=== PATIENT | female | born 1970 | race African-American/Black ===

== ENCOUNTER 2017-09-02 22:27 | Emergency (ER) | payer OTHER ==
[2017-09-02 23:57] LABS: Basophils # (Auto) 0.1 K/mm3 (0.0-0.1); Basophils % (Auto) 0.8 % (0.0-1.8); Eosinophils # (Auto) 0.4 K/mm3 (0.0-0.4); Eosinophils % (Auto) 4.1 % (0.0-4.3); Hematocrit 36.7 % (30.3-42.9); Hemoglobin 12.2 gm/dl (10.1-14.3); Lymphocytes # (Auto) 3.4 K/mm3 (1.2-5.4); Lymphocytes % (Auto) 36.1 % (13.4-35.0); Mean Corpuscular HGB Conc 33 % (30-34); Mean Corpuscular Hemoglobin 27 pg (28-32); Mean Corpuscular Volume 81 fl (79-97); Monocytes # (Auto) 0.5 K/mm3 (0.0-0.8); Monocytes % (Auto) 5.8 % (0.0-7.3); Platelet Count 247 K/mm3 (140-440); Red Blood Count 4.52 M/mm3 (3.65-5.03); Red Cell Distribution Width 13.6 % (13.2-15.2)
[2017-09-03 00:19] LABS: Albumin 3.9 g/dL (3.9-5); BUN/Creatinine Ratio 16; Blood Urea Nitrogen 8 mg/dL (7-17); Calcium 8.7 mg/dL (8.4-10.2); Hemolysis Index 118
[2017-09-03 00:24] LABS: Alanine Aminotransferase 13 units/L (7-56)
[2017-09-03 01:07] LABS: Bilirubin,Urine NEG (Negative); Blood,Urine LG (Negative); Color,Urine Straw (Yellow); Protein,Urine <15 mg/dL mg/dL (Negative); Urobilinogen,Urine < 2.0 mg/dL (<2.0)
[2017-09-03 01:10] LABS: HCG Qualitative,Urine Negative (Negative)
[2017-09-03] MEDS ORDERED: TORADOL IV ONE (04:03)
--- NOTE | 2017-09-03 04:40 | Emergency Department Report ---
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 2 weeks of lower back pain. 1 day of severe lower abdominal pain. no pai9n with urination. no vaginal dc. currently on period. no fever. normal bowel movements. no vomiting. normal PO. no hx of abdominal surgeries. Pain even with walking. took advil at home, no relief. came to ED. 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 Complaint: abdominal pain Location: LLQ, RLQ, suprapubic Radiation: none Migration to: no migration Severity: severe - Related Data Previous Rx's Medication Instructions Recorded Last Taken Type HYDROcodone/APAP 5-325 [[place] 1 each PO Q6HR PRN #20 tablet 08/14/14 Unknown Rx 5/325] Ibuprofen [Motrin] 800 mg PO Q8H PRN #30 tablet 08/14/14 Unknown Rx Meclizine [Antivert] 25 mg PO TID PRN #30 tablet 08/14/14 Unknown Rx Promethazine [Phenergan] 25 mg PO Q6H PRN #30 tablet 08/14/14 Unknown Rx Allergies Allergy/AdvReac Type Severity Reaction Status Date / Time No Known Allergies Allergy Verified 09/02/17 23:28 ED Review of Systems ROS: Stated complaint: ABDOMINAL PAIN Other details as noted in HPI Comment: All other systems reviewed and negative ED Past Medical Hx - Past Medical History Previous Medical History?: No - Surgical History Past Surgical History?: No - Social History Smoking Status: Never Smoker Substance Use Type: None - Medications Home Medications: Home Medications Medication Instructions Recorded Confirmed Last Taken Type HYDROcodone/APAP 5-325 [[place] 1 each PO Q6HR PRN #20 tablet 08/14/14 Unknown Rx 5/325] Ibuprofen [Motrin] 800 mg PO Q8H PRN #30 tablet 08/14/14 Unknown Rx Meclizine [Antivert] 25 mg PO TID PRN #30 tablet 08/14/14 Unknown Rx Promethazine [Phenergan] 25 mg PO Q6H PRN #30 tablet 08/14/14 Unknown Rx ED Physical Exam - General Limitations: Language Barrier General appearance: alert, in no apparent distress - Head Head exam: Present: atraumatic, normocephalic - Eye Eye exam: Present: normal appearance, PERRL, EOMI - ENT ENT exam: Present: normal exam, normal orophraynx, mucous membranes moist - Neck Neck exam: Present: normal inspection. Absent: tenderness - Respiratory Respiratory exam: Present: normal lung sounds bilaterally. Absent: respiratory distress, wheezes, rales - Cardiovascular Cardiovascular Exam: Present: regular rate, normal rhythm. Absent: systolic murmur, diastolic murmur, rubs, gallop - GI/Abdominal GI/Abdominal exam: Present: soft, tenderness. Absent: distended, guarding, rebound - External exam: Present: normal external exam. Absent: erythema, swelling Speculum exam: Present: normal speculum exam, vaginal bleeding, other (scant dark red blood in vault, on cycle now). Absent: vaginal discharge Bi-manual exam: Present: normal bi-manual exam. Absent: cervical motion tendernes, adnexal tenderness, adnexal mass, uterine enlargement, uterine tenderness - Extremities Exam Extremities exam: Present: normal inspection - Back Exam Back exam: Present: normal inspection, tenderness, paraspinal tenderness. Absent: full ROM, CVA tenderness (R), CVA tenderness (L), muscle spasm, vertebral tenderness - Neurological Exam Neurological exam: Present: alert, oriented X3 - Psychiatric Psychiatric exam: Present: normal affect, normal mood - Skin Skin exam: Present: warm, dry, intact, normal color. Absent: rash ED Course Vital Signs 09/02/17 09/02/17 09/03/17 23:01 23:29 02:00 Temperature 98.4 F 98.4 F Pulse Rate 68 69 Respiratory 18 Rate Blood Pressure 121/76 121/76 133/69 Blood Pressure [Left] O2 Sat by Pulse 99 99 100 Oximetry 09/03/17 09/03/17 02:06 03:00 Temperature 98 F Pulse Rate 60 Respiratory 17 Rate Blood Pressure 126/67 Blood Pressure 139/79 [Left] O2 Sat by Pulse 99 100 Oximetry ED Medical Decision Making - Lab Data Result diagrams: 09/02/17 23:48 09/02/17 23:48 Lab Results 09/02/17 09/02/17 09/03/17 Range/Units 23:48 23:48 00:15 WBC 9.4 (4.5-11.0) K/mm3 RBC 4.52 (3.65-5.03) M/mm3 Hgb 12.2 (10.1-14.3) gm/dl Hct 36.7 (30.3-42.9) % MCV 81 (79-97) fl MCH 27 L (28-32) pg MCHC 33 (30-34) % RDW 13.6 (13.2-15.2) % Plt Count 247 (140-440) K/mm3 Lymph % (Auto) 36.1 H (13.4-35.0) % [place] % (Auto) 5.8 (0.0-7.3) % Eos % (Auto) 4.1 (0.0-4.3) % Baso % (Auto) 0.8 (0.0-1.8) % Lymph # 3.4 (1.2-5.4) K/mm3 [place] # 0.5 (0.0-0.8) K/mm3 Eos # 0.4 (0.0-0.4) K/mm3 Baso # 0.1 (0.0-0.1) K/mm3 Seg Neutrophils % 53.2 (40.0-70.0) % Seg Neutrophils # 5.0 (1.8-7.7) K/mm3 Sodium 137 (137-145) mmol/L Potassium 4.9 (3.6-5.0) mmol/L Chloride 102.4 (98-107) mmol/L Carbon Dioxide 24 (22-30) mmol/L Anion Gap 16 mmol/L BUN 8 (7-17) mg/dL Creatinine 0.5 L (0.7-1.2) mg/dL Estimated GFR > 60 ml/min BUN/Creatinine Ratio 16 % Glucose 91 (65-100) mg/dL Calcium 8.7 (8.4-10.2) mg/dL Total Bilirubin < 0.20 (0.1-1.2) mg/dL AST 25 (5-40) units/L ALT 13 (7-56) units/L Alkaline Phosphatase 68 (35-129) units/L Total Protein 6.5 (6.3-8.2) g/dL Albumin 3.9 (3.9-5) g/dL Albumin/Globulin Ratio 1.5 % Urine Color Straw (Yellow) Urine Turbidity Clear (Clear) Urine pH 7.0 (5.0-7.0) Ur Specific [place] 1.005 (1.003-1.030) Urine Protein <15 mg/dl (Negative) mg/dL Urine Glucose (UA) Neg (Negative) mg/dL Urine Ketones Neg (Negative) mg/dL Urine Blood Lg (Negative) Urine Nitrite Neg (Negative) Urine Bilirubin Neg (Negative) Urine Urobilinogen < 2.0 (<2.0) mg/dL Ur Leukocyte Esterase Tr (Negative) Urine WBC (Auto) 1.0 (0.0-6.0) /HPF Urine RBC (Auto) 3.0 (0.0-6.0) /HPF U Epithel Cells (Auto) < 1.0 (0-13.0) /HPF Urine HCG, Qual Negative (Negative) - Radiology Data Radiology results: report reviewed - Medical Decision Making Ms Weiss is a 47 year-old woman who presents with abdominal pain. Back pain for two week. Exam with mild paraspinal back ttp. No bruising, no swelling, no midline spinal ttp. LEs neuro itnact. Abdominal exam with mild lower abdominal ttp. no hernia, no mass, no rebound. Suspect this is msk back pain. Abdominal pain UTI vs cervcitis vs consitpation vs diverticulitis. Much less likely obstruction based on normal bowel movements and soft abdomen. Normal exam. Normal lytes, WBC, hgb. UA. HCG negative. Wet prep normal. Toradol for pain. As there is a language barrier, i will order CT a/p with contrast to eval for more unlikely pathology. CT unremarkable. pain well controlled with toradol. recommend NSAIDs prn at home and pcp follow-up this week. Critical care attestation.: If time is entered above; I have spent that time in minutes in the direct care of this critically ill patient, excluding procedure time. ED Disposition Clinical Impression: Abdominal pain Qualifiers: Abdominal location: lower abdomen, unspecified Qualified Code(s): R10.30 - Lower abdominal pain, unspecified Disposition: - TO HOME OR SELFCARE Is pt being admited?: No Condition: Stable Instructions: Abdominal Pain (ED) Referrals: PRIMARY CARE,MD [Primary Care Provider] - 3-5 Days
--- NOTE | 2017-09-03 05:09 | Cat Scan Report ---
FINAL REPORT EXAM: CT ABDOMEN PELVIS W CON HISTORY: abdominal pain TECHNIQUE: CT images are acquired through the Abdomen and Pelvis arterial and delayed phases following intravenous administration of contrast. Transaxial, coronal and sagittal reformations are provided. PRIORS: None FINDINGS: Partially visualized intrathoracic contents are unremarkable. The liver is normal in size and contour. There are multiple scattered and predominantly subcentimeter hypo enhancing low-density lesions throughout the liver, by far the largest of which is in the left hepatic lobe and partially exophytic measuring up to 4.5 cm on axial series 2, image 34. No intra or extrahepatic biliary ductal dilatation. No solid or concerning hepatic mass identified. The gallbladder, pancreas, spleen and adrenal glands are unremarkable. Kidneys show no worrisome lesions, hydronephrosis, or calculi. Urinary bladder is unremarkable. Anteverted uterus. No significant free fluid in the pelvis. Small and large bowel are normal in caliber. Appendix is normal. No free air, free fluid, or lymphadenopathy identified. Aorta is normal in course and caliber. Superficial soft tissues are unremarkable. No acute or aggressive appearing skeletal findings. IMPRESSION: No acute findings in the abdomen or pelvis.
[2017-09-03 05:46] VITALS: BP 126/61
== END 2017-09-03 06:05 | disposition home or self-care (01) ==
LOC: ED 22:27
DX: R10.32 Left lower quadrant pain (principal); R10.31 Right lower quadrant pain
CPT/HCPCS: 36415; 74177; 80053; 81001; 81025; 85025; 87210; 87591; 96374; 99285; J1885; Q9967

== ENCOUNTER 2017-09-15 11:50 | Emergency (ER) | payer OTHER ==
[2017-09-15 12:34] LABS: Basophils # (Auto) 0.1 K/mm3 (0.0-0.1); Basophils % (Auto) 0.9 % (0.0-1.8); Eosinophils # (Auto) 0.4 K/mm3 (0.0-0.4); Eosinophils % (Auto) 4.7 % (0.0-4.3); Hematocrit 38.5 % (30.3-42.9); Hemoglobin 12.6 gm/dl (10.1-14.3); Lymphocytes # (Auto) 2.7 K/mm3 (1.2-5.4); Lymphocytes % (Auto) 34.2 % (13.4-35.0); Mean Corpuscular HGB Conc 33 % (30-34); Mean Corpuscular Hemoglobin 27 pg (28-32); Mean Corpuscular Volume 82 fl (79-97); Monocytes # (Auto) 0.5 K/mm3 (0.0-0.8); Monocytes % (Auto) 6.6 % (0.0-7.3); Platelet Count 282 K/mm3 (140-440); Red Blood Count 4.69 M/mm3 (3.65-5.03); Red Cell Distribution Width 14.6 % (13.2-15.2)
[2017-09-15 12:38] LABS: Bacteria,Urine 1+ /HPF (Negative); Bilirubin,Urine NEG (Negative); Blood,Urine SM (Negative); Color,Urine Yellow (Yellow); Mucus,Urine FEW /HPF; Protein,Urine <15 mg/dL mg/dL (Negative); Urobilinogen,Urine < 2.0 mg/dL (<2.0)
[2017-09-15 12:44] LABS: BUN/Creatinine Ratio 24; Blood Urea Nitrogen 12 mg/dL (7-17); Calcium 9.5 mg/dL (8.4-10.2); Hemolysis Index 4
--- NOTE | 2017-09-15 16:49 | Emergency Department Report ---
ED Female HPI - General Chief complaint: Vaginal Bleeding Stated complaint: VAGINAL BLEEDING Time Seen by Provider: 09/15/17 15:33 Source: patient Mode of arrival: Ambulatory Limitations: Language Barrier - History of Present Illness Initial comments: Ms Weiss is a 47 year-old woman who presents with vaginal bleeding. one month of spotting, on and off. Much less bleeding than her previous ED visit. Missed her [employer] follow-up. Improved abdominal pain. No vomiting, no nausea. no light headedness. no chest pain. No shortness of breath. no symptoms of anemia. No vaginal discharge. Normal stools and urine. no pain with urination. MD Complaint: vaginal bleeding - Related Data Previous Rx's Medication Instructions Recorded Last Taken Type HYDROcodone/APAP 5-325 [[place] 1 each PO Q6HR PRN #20 tablet 08/14/14 Unknown Rx 5/325] Ibuprofen [Motrin] 800 mg PO Q8H PRN #30 tablet 08/14/14 Unknown Rx Meclizine [Antivert] 25 mg PO TID PRN #30 tablet 08/14/14 Unknown Rx Promethazine [Phenergan] 25 mg PO Q6H PRN #30 tablet 08/14/14 Unknown Rx Naproxen 500 mg PO Q8HR PRN 5 Days #15 09/03/17 Unknown Rx tablet medroxyPROGESTERone ACETATE 5 mg PO QDAY 5 Days #5 tablet 09/15/17 Unknown Rx [Provera] Allergies Allergy/AdvReac Type Severity Reaction Status Date / Time No Known Allergies Allergy Verified 09/02/17 23:28 ED Review of Systems ROS: Stated complaint: VAGINAL BLEEDING Other details as noted in HPI Comment: All other systems reviewed and negative ED Past Medical Hx - Social History Smoking Status: Never Smoker Substance Use Type: None - Medications Home Medications: Home Medications Medication Instructions Recorded Confirmed Last Taken Type HYDROcodone/APAP 5-325 [[place] 1 each PO Q6HR PRN #20 tablet 08/14/14 Unknown Rx 5/325] Ibuprofen [Motrin] 800 mg PO Q8H PRN #30 tablet 08/14/14 Unknown Rx Meclizine [Antivert] 25 mg PO TID PRN #30 tablet 08/14/14 Unknown Rx Promethazine [Phenergan] 25 mg PO Q6H PRN #30 tablet 08/14/14 Unknown Rx Naproxen 500 mg PO Q8HR PRN 5 Days #15 09/03/17 Unknown Rx tablet medroxyPROGESTERone ACETATE 5 mg PO QDAY 5 Days #5 tablet 09/15/17 Unknown Rx [Provera] ED Physical Exam - General Limitations: Language Barrier General appearance: alert, in no apparent distress - Head Head exam: Present: atraumatic, normocephalic - Eye Eye exam: Present: normal appearance, EOMI, other (normal conjuntiva) - ENT ENT exam: Present: normal exam, normal orophraynx - Neck Neck exam: Present: normal inspection. Absent: tenderness, meningismus - Cardiovascular Cardiovascular Exam: Present: regular rate - GI/Abdominal GI/Abdominal exam: Present: soft. Absent: distended, tenderness, guarding, rebound - Extremities Exam Extremities exam: Present: normal capillary refill. Absent: tenderness, pedal edema, joint swelling, calf tenderness - Neurological Exam Neurological exam: Present: alert, oriented X3, normal gait - Psychiatric Psychiatric exam: Present: normal affect, normal mood - Skin Skin exam: Present: warm, dry, intact, normal color ED Course Vital Signs 09/15/17 11:57 Temperature 98.2 F Pulse Rate 68 Respiratory 18 Rate Blood Pressure 124/67 O2 Sat by Pulse 97 Oximetry ED Medical Decision Making - Lab Data Result diagrams: 09/15/17 12:11 09/15/17 12:11 Labs 09/15/17 09/15/17 09/15/17 12:11 12:11 12:11 WBC 7.8 RBC 4.69 Hgb 12.6 Hct 38.5 MCV 82 MCH 27 L MCHC 33 RDW 14.6 Plt Count 282 Lymph % (Auto) 34.2 [place] % (Auto) 6.6 Eos % (Auto) 4.7 H Baso % (Auto) 0.9 Lymph # 2.7 [place] # 0.5 Eos # 0.4 Baso # 0.1 Seg Neutrophils % 53.6 Seg Neutrophils # 4.2 Sodium 140 Potassium 4.4 Chloride 104.6 Carbon Dioxide 24 Anion Gap 16 BUN 12 Creatinine 0.5 L Estimated GFR > 60 BUN/Creatinine Ratio 24 Glucose 90 Calcium 9.5 Urine Color Urine Turbidity Urine pH Ur Specific [place] Urine Protein Urine Glucose (UA) Urine Ketones Urine Blood Urine Nitrite Urine Bilirubin Urine Urobilinogen Ur Leukocyte Esterase Urine WBC (Auto) Urine RBC (Auto) U Epithel Cells (Auto) Urine Bacteria (Auto) Urine Mucus Blood Type O POSITIVE Antibody Screen Negative 09/15/17 12:14 WBC RBC Hgb Hct MCV MCH MCHC RDW Plt Count Lymph % (Auto) [place] % (Auto) Eos % (Auto) Baso % (Auto) Lymph # [place] # Eos # Baso # Seg Neutrophils % Seg Neutrophils # Sodium Potassium Chloride Carbon Dioxide Anion Gap BUN Creatinine Estimated GFR BUN/Creatinine Ratio Glucose Calcium Urine Color Yellow Urine Turbidity Hazy Urine pH 6.0 Ur Specific [place] 1.005 Urine Protein <15 mg/dl Urine Glucose (UA) Neg Urine Ketones Neg Urine Blood Sm Urine Nitrite Neg Urine Bilirubin Neg Urine Urobilinogen < 2.0 Ur Leukocyte Esterase Lg Urine WBC (Auto) 43.0 H Urine RBC (Auto) 12.0 U Epithel Cells (Auto) 11.0 Urine Bacteria (Auto) 1+ Urine Mucus Few Blood Type Antibody Screen - Medical Decision Making ms Weiss is a 47 year-old woman who presents with vaginal bleeding. Seen in ED last month for vaginal bleeding, abdominal pain. had normal pelvic exam and CT abdomen/pelvis last month. Abdominal pain has improved, decreased vaginal bleeding. Only light bleeding on 3 pads per day. Missed her follow-up. Hgb stable. VSS. UA with blood, ikely from vaginal bleeding. + WBCs, 11 epithelials. No symptoms. Will not treat, likely contamination. No need for repeat pelvic exam, as only improvement in symptoms. Non-tender abdomen. No risk factors for DVT. Will start on 5 days of PO provera and give follow-up with [employer]. given hand-out with contact info. Given return precautions. DC to home Critical care attestation.: If time is entered above; I have spent that time in minutes in the direct care of this critically ill patient, excluding procedure time. ED Disposition Clinical Impression: Vaginal bleeding Disposition: DC-01 TO HOME OR SELFCARE Is pt being admited?: No Does the pt Need Aspirin: No Condition: Stable Instructions: Dysfunctional Uterine Bleeding (ED) Prescriptions: medroxyPROGESTERone ACETATE [Provera] 5 mg PO QDAY 5 Days #5 tablet Referrals: PRIMARY CARE, [Primary Care Provider] - 3-5 Days
[2017-09-15 17:03] VITALS: BP 122/80
== END 2017-09-15 17:04 | disposition home or self-care (01) ==
LOC: ED 11:50
DX: N93.9 Abnormal uterine and vaginal bleeding, unspecified (principal)
CPT/HCPCS: 36415; 80048; 81001; 85025; 86850; 86900; 86901; 99283

== ENCOUNTER 2017-10-31 16:50 | Emergency (ER) | payer OTHER ==
[2017-10-31 17:02] VITALS: BP 146/80
== END 2017-11-01 01:12 | disposition left against medical advice (07) ==
LOC: ED 16:50
DX: R07.89 Other chest pain (principal); Z53.21 Procedure and treatment not carried out due to patient leaving prior to being seen by health care provider
CPT/HCPCS: 93005; 93010

== ENCOUNTER 2018-11-04 11:30 | Emergency (ER) | payer BC, OTHER ==
[2018-11-04 11:46] VITALS: BP 153/69
--- NOTE | 2018-11-04 11:58 | Event Note ---
ED Screening Note Date of service: 11/04/18 Time: 11:58 ED Screening Note: 48 y o presents with abscess to upper lip x 2 days pain and swelling This initial assessment/diagnostic orders/clinical plan/treatment(s) is/are subject to change based on patients health status, clinical progression and re- assessment by fellow clinical providers in the ED. Further treatment and workup at subsequent clinical providers discretion. Patient/guardian urged not to elope from the ED as their condition may be serious if not clinically assessed and managed. Initial orders include:
--- NOTE | 2018-11-04 17:16 | Emergency Department Report ---
Abscess Boil HPI - HPI Chief Complaint: Allergic Reaction Stated Complaint: ALLERGIC REACTION Time Seen by Provider: 11/04/18 11:55 Duration: 2 Days Location: Other (upper lip) Severity: Mild History: Yes Pain, Yes Purulent Drainage, No Fever, No Numbness, No Foreign Body, No Previous History, No Insect Bite HPI: 48 year old [place] female presents to the emergency room for 2 day history of upper lip swelling. Patient reports there is pain in the inside of her lip and has drainage. Patient denies any fever or chills or nausea no vomiting. She denies any trauma to her face or teeth. Home Medications: Previous Rx's Medication Instructions Recorded Last Taken Type HYDROcodone/APAP 5-325 [[place] 1 each PO Q6HR PRN #20 tablet 08/14/14 Unknown Rx 5/325] Ibuprofen [Motrin] 800 mg PO Q8H PRN #30 tablet 08/14/14 Unknown Rx Meclizine [Antivert] 25 mg PO TID PRN #30 tablet 08/14/14 Unknown Rx Promethazine [Phenergan] 25 mg PO Q6H PRN #30 tablet 08/14/14 Unknown Rx Naproxen 500 mg PO Q8HR PRN 5 Days #15 09/03/17 Unknown Rx tablet medroxyPROGESTERone ACETATE 5 mg PO QDAY 5 Days #5 tablet 09/15/17 Unknown Rx [Provera] Clindamycin [Clindamycin CAP] 300 mg PO Q8H #21 cap 11/04/18 Unknown Rx Naproxen [Naprosyn] 500 mg PO BID #14 tablet 11/04/18 Unknown Rx Allergies/Adverse Reactions: Allergies Allergy/AdvReac Type Severity Reaction Status Date / Time No Known Allergies Allergy Verified 10/31/17 16:59 ED Review of Systems ROS: Stated complaint: ALLERGIC REACTION Other details as noted in HPI Comment: All other systems reviewed and negative ED Past Medical Hx - Past Medical History Previous Medical History?: Yes Hx Hypertension: Yes - Surgical History Past Surgical History?: No - Social History Smoking Status: Never Smoker Substance Use Type: Prescribed - Medications Home Medications: Home Medications Medication Instructions Recorded Confirmed Last Taken Type HYDROcodone/APAP 5-325 [[place] 1 each PO Q6HR PRN #20 tablet 08/14/14 Unknown Rx 5/325] Ibuprofen [Motrin] 800 mg PO Q8H PRN #30 tablet 08/14/14 Unknown Rx Meclizine [Antivert] 25 mg PO TID PRN #30 tablet 08/14/14 Unknown Rx Promethazine [Phenergan] 25 mg PO Q6H PRN #30 tablet 08/14/14 Unknown Rx Naproxen 500 mg PO Q8HR PRN 5 Days #15 09/03/17 Unknown Rx tablet medroxyPROGESTERone ACETATE 5 mg PO QDAY 5 Days #5 tablet 09/15/17 Unknown Rx [Provera] Clindamycin [Clindamycin CAP] 300 mg PO Q8H #21 cap 11/04/18 Unknown Rx Naproxen [Naprosyn] 500 mg PO BID #14 tablet 11/04/18 Unknown Rx ED Abscess Boil Physical Exam - Exam General: Vital signs noted. No distress. Alert and acting appropriately. Size: 2 cm Exam: Yes Tenderness, Yes Normal Neurologic Exam, Yes Normal Circulation, No Fluctuance (drainage present), No Surrounding Cellulites/Erythema, No Lymphangitis, No Crepitation, No Heart Murmur ED Course Vital Signs 11/04/18 11:43 Temperature 98.2 F Pulse Rate 68 Respiratory 18 Rate Blood Pressure 153/69 O2 Sat by Pulse 98 Oximetry Critical care attestation.: If time is entered above; I have spent that time in minutes in the direct care of this critically ill patient, excluding procedure time. ED Medical Decision Making - Medical Decision Making 48 year old [place] female presents to the emergency room for 2 day history of upper lip swelling. Patient reports there is pain in the inside of her lip and has drainage. Patient denies any fever or chills or nausea no vomiting. She denies any trauma to her face or teeth. It appears to have a abscess to her upper lip near her gumline with drainage. Discussed the patient I'll place her on clindamycin and ibuprofen. Patient can follow up with her dentist in the next 3 days. ED Disposition Clinical Impression: Abscess of upper gum Disposition: TO HOME OR SELFCARE Is pt being admited?: No Does the pt Need Aspirin: No Condition: Stable Instructions: Abscess (ED) Additional Instructions: Continue to antibiotics as prescribed. Pain medication as needed. Follow up with the dentist in the next 2-3 days. Prescriptions: Clindamycin [Clindamycin CAP] 300 mg PO Q8H #21 cap Naproxen [Naprosyn] 500 mg PO BID #14 tablet Referrals: PRIMARY CARE, [Primary Care Provider] - 3-5 Days
== END 2018-11-04 17:23 | disposition home or self-care (01) ==
LOC: ED 11:30
DX: K05.219 Aggressive periodontitis, localized, unspecified severity (principal); I10 Essential (primary) hypertension; Z79.899 Other long term (current) drug therapy
CPT/HCPCS: 99282

== ENCOUNTER 2019-08-06 15:32 | Emergency (ER) | payer BC ==
[2019-08-06 15:39] VITALS: BP 129/105
--- NOTE | 2019-08-06 17:37 | Emergency Department Report ---
Eye Injury/Foreign Body - HPI Duration: 1 Day Eye Location: Right Severity: Mild Tetanus Status: Up to Date Eye Symptoms: Eye Pain: No, Blurred Vision: Yes, Eye Redness: Yes, Grinding/Hammering Metal: No, Used Eye Protection: No, Contact Lens Use: No, Recalls Injury: No, Photophobia: No Other History: This is a 49-year-old female with no prior medical history presents to ED complaining of right eye redness that she noticed last night around 1 AM. Patient states she has a little bit of pain to the right eye. Patient denies any injury, trauma to the eye or loss of vision. Patient admits mild blurry vision but otherwise no other symptoms. ED Review of Systems ROS: Stated complaint: RIGHT EYE PAIN Other details as noted in HPI Comment: All other systems reviewed and negative ED Past Medical Hx - Past Medical History Previous Medical History?: No Hx Hypertension: Yes - Surgical History Past Surgical History?: No - Social History Smoking Status: Never Smoker Substance Use Type: None - Medications Home Medications: Home Medications Medication Instructions Recorded Confirmed Last Taken Type HYDROcodone/APAP 5-325 [[place] 1 each PO Q6HR PRN #20 tablet 08/14/14 Unknown Rx 5/325] Ibuprofen [Motrin] 800 mg PO Q8H PRN #30 tablet 08/14/14 Unknown Rx Meclizine [Antivert] 25 mg PO TID PRN #30 tablet 08/14/14 Unknown Rx Promethazine [Phenergan] 25 mg PO Q6H PRN #30 tablet 08/14/14 Unknown Rx Naproxen 500 mg PO Q8HR PRN 5 Days #15 09/03/17 Unknown Rx tablet medroxyPROGESTERone ACETATE 5 mg PO QDAY 5 Days #5 tablet 09/15/17 Unknown Rx [Provera] Clindamycin [Clindamycin CAP] 300 mg PO Q8H #21 cap 11/04/18 Unknown Rx Naproxen [Naprosyn] 500 mg PO BID #14 tablet 11/04/18 Unknown Rx Ketorolac Tromethamine [Ketorolac 1 drop OP BID #1 bottle 08/06/19 Unknown Rx Tromethamine 0.4% opth soln] Eye Injury Exam - Exam General: Vital signs noted. No distress. Alert and acting appropriately. Vision is intact bilaterally. Subconjunctival bleed noted to the left aspect of the eye ED Course Vital Signs 08/06/19 08/06/19 15:37 16:13 Temperature 97.8 F Pulse Rate 67 Respiratory 18 14 Rate Blood Pressure 129/105 O2 Sat by Pulse 98 Oximetry ED Medical Decision Making - Medical Decision Making 49-year-old female presents with right subconjunctival hemorrhage hemorrhage. I discussed with patient that this will resolve on its own. Patient had no loss of vision. Vision is intact bilaterally. There is no orbital swelling or laceration or any signs of injury. I discussed with patient to follow-up with her primary care physician as well as her heart doctor Critical care attestation.: If time is entered above; I have spent that time in minutes in the direct care of this critically ill patient, excluding procedure time. ED Disposition Clinical Impression: Subconjunctival hemorrhage Disposition: DC-01 TO HOME OR SELFCARE Is pt being admited?: No Does the pt Need Aspirin: No Condition: Stable Instructions: Subconjunctival Hemorrhage (ED) Additional Instructions: Make sure to follow up with the primary care physician as discussed. Take all your medications as you've been prescribed. If you have any worsening symptoms or develop new symptoms please return to ED immediately. Prescriptions: Ketorolac Tromethamine [Ketorolac Tromethamine 0.4% opth soln] 1 drop OP BID #1 bottle Referrals: PRIMARY CARE, [Primary Care Provider] - 3-5 Days [facility] [Outside] - 3-5 Days [facility] [Provider Group] - 3-5 Days Forms: Accompanied Note, Work/School Release Form(ED) Time of Disposition: 17:43
== END 2019-08-06 17:58 | disposition home or self-care (01) ==
LOC: ED 15:32
DX: H11.31 Conjunctival hemorrhage, right eye (principal); I10 Essential (primary) hypertension; Z79.1 Long term (current) use of non-steroidal anti-inflammatories (NSAID); Z79.899 Other long term (current) drug therapy
CPT/HCPCS: 99282

== ENCOUNTER 2020-07-18 23:32 | Emergency (ER) | payer SELFPAY ==
[2020-07-19 00:48] VITALS: BP 124/75
--- NOTE | 2020-07-19 00:59 | Emergency Department Report ---
ED Back Pain/Injury HPI - General Chief Complaint: Back Pain/Injury Stated Complaint: BACK PAIN Time Seen by Provider: 07/19/20 00:21 Source: family Limitations: No Limitations - History of Present Illness Initial Comments: 50-year-old female presents emerge department complaining of right flank pain that starts in the hypochondriac area and radiates around her flank to the lower back which is worse with palpation and range of motion. She reports no hematuria or dysuria no increased urinary frequency she reports no trauma. No chest pain or palpitations, no shortness of breath. MD Complaint: back pain -: Gradual, days(s) (2-3) Similar Symptoms Previously: No Severity: mild, moderate Quality: dull, aching Consistency: constant Improves With: none Worsens With: none Context: turning/twisting Associated Symptoms: denies: confusion, weakness, chest pain, difficulty walking, fever/chills, constipation, headaches, malaise, rash, seizure, syncope, other - Related Data Previous Rx's Medication Instructions Recorded Last Taken Type HYDROcodone/APAP 5-325 [[place] 1 each PO Q6HR PRN #20 tablet 08/14/14 Unknown Rx 5/325] Ibuprofen [Motrin] 800 mg PO Q8H PRN #30 tablet 08/14/14 Unknown Rx Meclizine [Antivert] 25 mg PO TID PRN #30 tablet 08/14/14 Unknown Rx Promethazine [Phenergan] 25 mg PO Q6H PRN #30 tablet 08/14/14 Unknown Rx Naproxen 500 mg PO Q8HR PRN 5 Days #15 09/03/17 Unknown Rx tablet medroxyPROGESTERone ACETATE 5 mg PO QDAY 5 Days #5 tablet 09/15/17 Unknown Rx [Provera] Clindamycin [Clindamycin CAP] 300 mg PO Q8H #21 cap 11/04/18 Unknown Rx Naproxen [Naprosyn] 500 mg PO BID #14 tablet 11/04/18 Unknown Rx Ketorolac Tromethamine [Ketorolac 1 drop OP BID #1 bottle 08/06/19 Unknown Rx Tromethamine 0.4% opth soln] Ketorolac [Toradol] 10 mg PO Q6H PRN #14 tablet 07/19/20 Unknown Rx Nitrofurantoin [place]/M-Cryst 100 mg PO Q12HR #20 capsule 07/19/20 Unknown Rx [Macrobid CAP] Phenazopyridine [Pyridium] 200 mg PO TID #9 tab 07/19/20 Unknown Rx Allergies Allergy/AdvReac Type Severity Reaction Status Date / Time No Known Allergies Allergy Verified 08/06/19 15:37 ED Review of Systems ROS: Stated complaint: BACK PAIN Other details as noted in HPI Comment: All other systems reviewed and negative ED Past Medical Hx - Past Medical History Previous Medical History?: Yes Hx Hypertension: Yes - Surgical History Past Surgical History?: No - Social History Smoking Status: Never Smoker Substance Use Type: None - Medications Home Medications: Home Medications Medication Instructions Recorded Confirmed Last Taken Type HYDROcodone/APAP 5-325 [[place] 1 each PO Q6HR PRN #20 tablet 08/14/14 Unknown Rx 5/325] Ibuprofen [Motrin] 800 mg PO Q8H PRN #30 tablet 08/14/14 Unknown Rx Meclizine [Antivert] 25 mg PO TID PRN #30 tablet 08/14/14 Unknown Rx Promethazine [Phenergan] 25 mg PO Q6H PRN #30 tablet 08/14/14 Unknown Rx Naproxen 500 mg PO Q8HR PRN 5 Days #15 09/03/17 Unknown Rx tablet medroxyPROGESTERone ACETATE 5 mg PO QDAY 5 Days #5 tablet 09/15/17 Unknown Rx [Provera] Clindamycin [Clindamycin CAP] 300 mg PO Q8H #21 cap 11/04/18 Unknown Rx Naproxen [Naprosyn] 500 mg PO BID #14 tablet 11/04/18 Unknown Rx Ketorolac Tromethamine [Ketorolac 1 drop OP BID #1 bottle 08/06/19 Unknown Rx Tromethamine 0.4% opth soln] Ketorolac [Toradol] 10 mg PO Q6H PRN #14 tablet 07/19/20 Unknown Rx Nitrofurantoin [place]/M-Cryst 100 mg PO Q12HR #20 capsule 07/19/20 Unknown Rx [Macrobid CAP] Phenazopyridine [Pyridium] 200 mg PO TID #9 tab 07/19/20 Unknown Rx ED Physical Exam - General Limitations: No Limitations General appearance: alert, in no apparent distress - Head Head exam: Present: atraumatic, normocephalic - Eye Eye exam: Present: normal appearance - ENT ENT exam: Present: mucous membranes moist - Neck Neck exam: Present: normal inspection - Respiratory Respiratory exam: Present: normal lung sounds bilaterally. Absent: respiratory distress - Cardiovascular Cardiovascular Exam: Present: regular rate, normal rhythm. Absent: systolic murmur, diastolic murmur, rubs, gallop - GI/Abdominal GI/Abdominal exam: Present: soft, tenderness (Pain to the flank and some vague pain to the hypochondriac area with deep palpation there is no rashes. No discoloration.), normal bowel sounds. Absent: organomegaly, mass - Extremities Exam Extremities exam: Present: normal inspection - Back Exam Back exam: Present: normal inspection, tenderness, muscle spasm, paraspinal t enderness (To the right sacroiliac joint with palpation.). Absent: CVA tenderness (R), CVA tenderness (L), vertebral tenderness - Neurological Exam Neurological exam: Present: alert, oriented X3, CN II-XII intact, normal gait - Psychiatric Psychiatric exam: Present: normal affect, normal mood - Skin Skin exam: Present: warm, dry, intact, normal color. Absent: rash ED Course Vital Signs 07/19/20 00:05 Temperature 98.5 F Pulse Rate 68 Respiratory 18 Rate Blood Pressure 124/75 O2 Sat by Pulse 95 Oximetry ED Medical Decision Making - Lab Data Lab Results 07/19/20 Range/Units 00:48 Urine Color Yellow (Yellow) Urine Turbidity Clear (Clear) Urine pH 6.0 (5.0-7.0) Ur Specific Bell 1.010 (1.003-1.030) Urine Protein <15 mg/dl (Negative) mg/dL Urine Glucose (UA) Neg (Negative) mg/dL Urine Ketones Neg (Negative) mg/dL Urine Blood Lg (Negative) Urine Nitrite Neg (Negative) Ur Reducing Substances Not Reportable Urine Bilirubin Neg (Negative) Urine Ictotest Not Reportable Urine Urobilinogen < 2.0 (<2.0) mg/dL Ur Leukocyte Esterase Sm (Negative) Urine WBC (Auto) 11.0 H (0.0-6.0) /HPF Urine RBC (Auto) 27.0 (0.0-6.0) /HPF U Epithel Cells (Auto) 5.0 (0-13.0) /HPF Urine Bacteria (Auto) 1+ (Negative) /HPF Urine Mucus Few /HPF - Medical Decision Making Pt presents the emergency department complaining of back pain most consistent with back Pain Most Consistent with Strain/Contusion. Differential Diagnosis Includes Lumbar Go Versus Musculoskeletal Spasm, Strain Versus Sciatica. No Back Pain Red Flags on History or Physical. Presentation Not Consistent with Malignancy, Fracture, Cauda Equina, Abdominal Aortic Aneurysm, Viscus Perforation, Pulmonary Embolism, Renal Colic, Pyelonephritis. Patient reports no B symptoms, trauma trauma, incontinence, saddle anesthesia, distal weakness, urinary symptoms and is a febrile. Critical care attestation.: If time is entered above; I have spent that time in minutes in the direct care of this critically ill patient, excluding procedure time. ED Disposition Clinical Impression: Back pain, UTI (urinary tract infection) Disposition: TO HOME OR SELFCARE Is pt being admited?: No Does the pt Need Aspirin: No Condition: Stable Instructions: Acute Back Pain, Adult, Urinary Tract Infection, Adult, Back Injury Prevention Prescriptions: Nitrofurantoin [place]/M-Cryst [Macrobid CAP] 100 mg PO Q12HR #20 capsule Phenazopyridine [Pyridium] 200 mg PO TID #9 tab Ketorolac [Toradol] 10 mg PO Q6H PRN #14 tablet PRN Reason: Pain Referrals: MARLON DURBIN MD [Staff Physician] - 3-5 Days
[2020-07-19 02:12] LABS: Bacteria,Urine 1+ /HPF (Negative); Mucus,Urine FEW /HPF
[2020-07-19 02:13] LABS: Bilirubin,Urine NEG (Negative); Blood,Urine LG (Negative); Color,Urine Yellow (Yellow); Protein,Urine <15 mg/dL mg/dL (Negative); Urobilinogen,Urine < 2.0 mg/dL (<2.0)
== END 2020-07-19 04:15 | disposition home or self-care (01) ==
LOC: ED 23:32
DX: N39.0 Urinary tract infection, site not specified (principal); M54.9 Dorsalgia, unspecified; I10 Essential (primary) hypertension; Z79.899 Other long term (current) drug therapy
CPT/HCPCS: 81001; 87086

== ENCOUNTER 2020-10-31 14:53 | Emergency (ER) | payer BC ==
[2020-10-31 15:42] VITALS: BP 131/74
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
== END 2020-10-31 19:00 | disposition home or self-care (01) ==
LOC: ED 14:53
DX: S29.011A Strain of muscle and tendon of front wall of thorax, initial encounter (principal); S80.10XA Contusion of unspecified lower leg, initial encounter; I10 Essential (primary) hypertension; V89.2XXA Person injured in unspecified motor-vehicle accident, traffic, initial encounter; Y93.89 Activity, other specified; Y92.89 Other specified places as the place of occurrence of the external cause; Y99.8 Other external cause status
CPT/HCPCS: 71046; 99283